=== PATIENT | female | born 1995 | race Caucasian/White ===

== ENCOUNTER 2018-10-06 01:13 | Emergency (ER) | payer BC ==
[~2018-10-06] VITALS: Ht 170.2 cm; Wt 81.8 kg
[2018-10-06] MEDS ORDERED: SPRINTEC 35 MCG1 TAB PO (01:28)
[2018-10-06 01:30] VITALS: BP 124/73
[2018-10-06] MEDS ORDERED: AMOXIL500 M1 PO (02:01)
== END 2018-10-06 02:06 | disposition home or self-care (01) ==
LOC: ED 01:13
DX: K02.9 Dental caries, unspecified (principal); S02.5XXA Fracture of tooth (traumatic), initial encounter for closed fracture; F17.210 Nicotine dependence, cigarettes, uncomplicated; Z88.8 Allergy status to other drugs, medicaments and biological substances; Z90.49 Acquired absence of other specified parts of digestive tract
CPT/HCPCS: J1885